=== PATIENT | male | born 1970 | race Caucasian/White ===

== ENCOUNTER 2019-02-26 20:47 | Emergency (ER) | payer OTHER ==
[2019-02-26 23:39] VITALS: BP 129/71
== END 2019-02-26 23:39 | disposition home or self-care (01) ==
LOC: ED 20:47
DX: R59.0 Localized enlarged lymph nodes (principal); S30.1XXA Contusion of abdominal wall, initial encounter; E78.00 Pure hypercholesterolemia, unspecified; Z88.8 Allergy status to other drugs, medicaments and biological substances; X58.XXXA Exposure to other specified factors, initial encounter; Y93.89 Activity, other specified; Y92.89 Other specified places as the place of occurrence of the external cause; Y99.8 Other external cause status